=== PATIENT | male | born 1930 | race Caucasian/White ===

== ENCOUNTER 2018-02-09 12:25 | Emergency (ER) | payer MEDICARE, BC ==
[~2018-02-09] VITALS: Ht 172.7 cm; Wt 79.5 kg
[~2018-02-09 12:25] MED LIST: ACYC-202 PO; ALB520 IH; ASPI-611 PO; CARV-50 PO; CHOL100046 PO; DIO160T PO; FENO134C PO; FISH1CAP15 PO; GLUC1TAB21 PO; HYDR-4353 PO; MAGN400C PO; MULT-933 PO; SIMV20TA5 PO; VITA-293 PO; ZOLP5TAB8 PO
[2018-02-09 13:01] VITALS: BP 125/75
[2018-02-09 13:40] LABS: COLOR,URINE RED (Yellow)
[2018-02-09 13:44] LABS: UA COLLECTION TYPE VOIDED
[2018-02-09 13:45] LABS: CLARITY,URINE BLOODY (Clear)
[2018-02-09 13:56] LABS: RBC,URINE TNTC /HPF (0-2)
[2018-02-09 14:01] LABS: WBC,URINE 30-50 /HPF (0-4)
[2018-02-09 14:04] LABS: BACTERIA,URINE 3+ /HPF (Neg)
[2018-02-09 14:06] LABS: MUCUS STRANDS FEW /LPF (Neg); SQUAMOUS EPITHELIAL CELL,UR NONE SEEN /LPF (FEW)
[2018-02-09 14:22] LABS: BASOPHILS % (AUTO) 0.1 % (0-1); EOSINOPHILS # (AUTO) 0.2 X10'3 (0-0.9); EOSINOPHILS % (AUTO) 3.3 % (0-6); HEMATOCRIT 45.6 % (42.0-52.0); HEMOGLOBIN 15.1 g/dl (14.0-17.9); LYMPHOCYTES # (AUTO) 0.7 X10'3 (1.1-4.8); MEAN CORPUSCULAR HGB CONC 33.2 % (33.0-36.5); MEAN CORPUSCULAR VOLUME 90.4 FL (78-98); MEAN PLATELET VOLUME 7.6 FL (7.4-10.4); MONOCYTES # (AUTO) 0.6 X10'3 (0-0.9); MONOCYTES % (AUTO) 9.1 % (2-12); NEUTROPHILS # (AUTO) 5.3 X10'3 (1.8-7.7); NEUTROPHILS % (AUTO) 77.5 % (42-75); PLATELET COUNT 201 X10'3 (140-440); RED BLOOD COUNT 5.05 X10'6 (4.70-6.10); RED CELL DISTRIBUTION WIDTH 14.2 % (11.5-14.5); WHITE BLOOD COUNT 6.9 X10'3 (4.5-11.0)
[2018-02-09] MEDS ORDERED: CIPR-259 PO (14:22)
[2018-02-09 14:38] LABS: ALANINE AMINOTRANSFERASE 17 U/L (12-78); ALBUMIN 3.8 G/DL (3.4-5.0); ALBUMIN/GLOBULIN RATIO 1.2 (1.1-1.5); ALKALINE PHOSPHATASE 80 IU/L (46-116); ANION GAP 11 (8-16); ASPARTATE AMINO TRANSFERASE 13 U/L (10-37); BILIRUBIN,TOTAL 0.4 MG/DL (0.1-1.0); BLOOD UREA NITROGEN 30 MG/DL (7-18); BUN/CREATININE RATIO 20.1 (5.4-32.0); CALCIUM 9.1 MG/DL (8.5-10.1); CHLORIDE 105 MMOL/L (99-107); CREATININE 1.49 MG/DL (0.60-1.10); GLUCOSE 121 MG/DL (70-104); SODIUM 142 MMOL/L (135-145); TOTAL CARBON DIOXIDE 26.5 MMOL/L (24-32); TOTAL PROTEIN 7.1 G/DL (6.4-8.2); eGFR 45 ML/MIN
[2018-02-09] MEDS ORDERED: CefTRIAXone 1000mg IM Kit (w/lidocaine diluent) IM ONE (14:40)
== END 2018-02-09 15:03 | disposition home or self-care (01) ==
LOC: ER 12:25
DX: N39.0 Urinary tract infection, site not specified (principal); R31.9 Hematuria, unspecified; I25.10 Atherosclerotic heart disease of native coronary artery without angina pectoris; E78.00 Pure hypercholesterolemia, unspecified; I10 Essential (primary) hypertension; I25.2 Old myocardial infarction; J44.9 Chronic obstructive pulmonary disease, unspecified; G89.29 Other chronic pain; Z98.61 Coronary angioplasty status; Z98.890 Other specified postprocedural states; Z79.82 Long term (current) use of aspirin; Z79.2 Long term (current) use of antibiotics; Z79.899 Other long term (current) drug therapy
CPT/HCPCS: 36415; 80053; 81001; 85025; 87088; 96372; 99284; J0696

== ENCOUNTER 2019-04-13 02:58 | Emergency (ER) | payer MEDICARE, BC ==
[~2019-04-13] VITALS: Ht 172.7 cm; Wt 86.4 kg
[~2019-04-13 02:58] MED LIST changes: +SIMV-42 PO; -SIMV20TA5 PO
[2019-04-13] MEDS ORDERED: LIDOcaine 2% 10ml TOPICAL JELLY (Urojet) MM ONE (03:30)
[2019-04-13] MEDS ORDERED: FLO0.4C PO (04:21)
[2019-04-13 04:37] VITALS: BP 101/83
[2019-04-13 04:59] LABS: CLARITY,URINE TURBID (Clear); COLOR,URINE BROWN (Yellow); GLUCOSE, URINE 100 mg/dl (Neg); KETONES,URINE 15 mg/dl (Neg); LEUKOCYTE ESTERASE ,URINE MODERATE (Neg); NITRITES, URINE POSITIVE (Neg); OCCULT BLOOD,URINE LARGE (Neg); PROTEIN,URINE >=300 mg/dl (Neg); UROBILINOGEN,URINE >=8.0 E.U/dL (0.2-1.0)
[2019-04-13 05:04] LABS: UA COLLECTION TYPE FOLEY CATH
[2019-04-13 05:30] LABS: BACTERIA,URINE NONE SEEN /HPF (Neg); RBC,URINE TNTC /HPF (0-2); WBC,URINE 20-30 /HPF (0-4)
[2019-04-13 05:31] LABS: MUCUS STRANDS NONE SEEN /LPF (Neg); SQUAMOUS EPITHELIAL CELL,UR NONE SEEN /LPF (FEW)
== END 2019-04-13 04:38 | disposition home or self-care (01) ==
LOC: ER 02:58
DX: R33.9 Retention of urine, unspecified (principal); I25.10 Atherosclerotic heart disease of native coronary artery without angina pectoris; E78.00 Pure hypercholesterolemia, unspecified; I10 Essential (primary) hypertension; I25.2 Old myocardial infarction; J44.9 Chronic obstructive pulmonary disease, unspecified; G89.29 Other chronic pain; Z95.5 Presence of coronary angioplasty implant and graft; Z95.1 Presence of aortocoronary bypass graft; Z98.890 Other specified postprocedural states; Z79.82 Long term (current) use of aspirin; Z79.899 Other long term (current) drug therapy
CPT/HCPCS: 51702; 81001; 87088; 99284

== ENCOUNTER 2019-04-19 17:32 | Emergency (ER) | payer MEDICARE, BC ==
[~2019-04-19] VITALS: Ht 172.7 cm; Wt 81.8 kg
[~2019-04-19 17:32] MED LIST changes: +FLO0.4C PO
[2019-04-19 17:59] VITALS: BP 141/69
--- NOTE | 2019-04-19 18:38 | NUR ---
SANDI Stephenson at bedside.
[2019-04-19] MEDS ORDERED: LIDOcaine 2% 10ml TOPICAL JELLY (Urojet) TP ONE (18:40)
== END 2019-04-19 20:13 | disposition home or self-care (01) ==
LOC: EDBD → ER 17:32
DX: R33.9 Retention of urine, unspecified (principal); I25.10 Atherosclerotic heart disease of native coronary artery without angina pectoris; E78.00 Pure hypercholesterolemia, unspecified; I10 Essential (primary) hypertension; I25.2 Old myocardial infarction; J44.9 Chronic obstructive pulmonary disease, unspecified; G89.29 Other chronic pain; Z98.61 Coronary angioplasty status; Z95.1 Presence of aortocoronary bypass graft; Z98.890 Other specified postprocedural states; Z79.899 Other long term (current) drug therapy
CPT/HCPCS: 51702; 99284

== ENCOUNTER 2019-04-21 12:07 | Emergency (ER) | payer MEDICARE, BC ==
[~2019-04-21] VITALS: Ht 172.7 cm; Wt 87.6 kg
--- NOTE | 2019-04-21 13:28 | NUR ---
HAD A BIOPSI REMOVED FROM BLADDER THE NEXT DAY COULD NOT VOID SO THEY PALCED A F/C IT HAS BEEN REPLACED X2 THEY STATE IT HAS BEEN BLOODY THE HOLE TIME
--- NOTE | 2019-04-21 14:59 | NUR ---
CAME IN TO FLUSH F/C AND F/C STARTED TO FLOW AGAIN HE STATE THAT HE SAW THE CLOT GO THOUGHT THE TUBE
[2019-04-21 16:01] VITALS: BP 141/62
== END 2019-04-21 16:05 | disposition home or self-care (01) ==
LOC: EDBD → ER 12:08
DX: T83.098A Other mechanical complication of other urinary catheter, initial encounter (principal); R31.9 Hematuria, unspecified; I25.10 Atherosclerotic heart disease of native coronary artery without angina pectoris; E78.00 Pure hypercholesterolemia, unspecified; I10 Essential (primary) hypertension; I25.2 Old myocardial infarction; J44.9 Chronic obstructive pulmonary disease, unspecified; G89.29 Other chronic pain; Z98.61 Coronary angioplasty status; Z95.1 Presence of aortocoronary bypass graft; Z98.890 Other specified postprocedural states; Z79.2 Long term (current) use of antibiotics; Z79.82 Long term (current) use of aspirin; Z79.899 Other long term (current) drug therapy; Y92.89 Other specified places as the place of occurrence of the external cause; Y84.6 Urinary catheterization as the cause of abnormal reaction of the patient, or of later complication, without mention of misadventure at the time of the procedure
CPT/HCPCS: 99281

== ENCOUNTER 2019-04-22 21:16 | Emergency (ER) | payer MEDICARE, BC ==
[~2019-04-22] VITALS: Ht 172.7 cm; Wt 81.8 kg
[2019-04-22 22:37] VITALS: BP 135/62
== END 2019-04-22 22:00 | disposition home or self-care (01) ==
LOC: ER 21:17 → EDBD 21:17 → ER 22:00
DX: R51 Headache (principal); R31.9 Hematuria, unspecified; T83.031A Leakage of indwelling urethral catheter, initial encounter; I25.10 Atherosclerotic heart disease of native coronary artery without angina pectoris; E78.00 Pure hypercholesterolemia, unspecified; I10 Essential (primary) hypertension; I25.2 Old myocardial infarction; J44.9 Chronic obstructive pulmonary disease, unspecified; G89.29 Other chronic pain; Z95.1 Presence of aortocoronary bypass graft; Z98.890 Other specified postprocedural states; Z79.2 Long term (current) use of antibiotics; Z79.82 Long term (current) use of aspirin; Z79.899 Other long term (current) drug therapy
CPT/HCPCS: 99284